=== PATIENT | male | born 1985 | race African-American/Black ===

== ENCOUNTER 2021-03-07 12:53 | Emergency (ER) | payer SELFPAY ==
[2021-03-07 13:58] LABS: Bilirubin Neg (Negative); Blood, Urine 150 (Negative); Clarity Clear (Clear); Glucose, Urine (Dipstick) Normal (Negative); Ketone, Urine 5 mg/dL (Negative); Leukocyte Negative (Negative); Nitrite Negative (Negative); Protein, Urine (Dipstick) 30 mg/dl (Neg-Trace); Specific Gravity, Urine 1.025 (1.002-1.036)
[2021-03-07 14:10] LABS: Bacteria/HPF None Seen HPF (None Seen); Mucous/LPF 1+ LPF (<2+); Squamous Epithelial 0-3 HPF (0-3); WBC/HPF 0-3 HPF (0-3)
[2021-03-07 14:11] LABS: Hemoglobin 17.2 g/dL (13.5-17.5); Mean Corpuscular HGB CONC 34.3 g/dL (32.0-36.0); Mean Corpuscular Hemoglobin 34.1 pg (27.0-33.0); Mean Corpuscular Volume 99.6 fl (81.2-95.1); RBC Distribution Width 11.9 % (11.5-14.5); Red Blood Cell (RBC) Count 5.04 10x6/uL (4.32-5.72); White Blood Cell (WBC) Count 4.1 10x3/uL (3.5-10.5)
[2021-03-07 14:16] LABS: Mean Platelet Volume 10.1 fl (7.4-10.4); Platelet Count 140 10x3/uL (150-450)
[2021-03-07 14:28] LABS: ALT (SGPT) 11 U/L (8-55); AST (SGOT) 27 U/L (5-34); Albumin 4.5 g/dL (3.5-5.0); Alkaline Phosphatase 79 U/L (40-110); Anion Gap 13 mmol/L (10-20); BUN (Urea Nitrogen) 11 mg/dL (8.9-20.6); Bilirubin, Total 1.6 mg/dL (0.2-1.2); CK (CPK) 111 U/L (30-200); Calc. Creatinine Clearance 0 mL/min (70-130); Calcium 9.2 mg/dL (7.8-10.44); Carbon Dioxide 25 mmol/L (22-29); Chloride 103 mmol/L (98-107); Globulin 3.1 g/dL (2.4-3.5); Glucose 90 mg/dL (70-105); Potassium 4.7 mmol/L (3.5-5.1); Protein, Total 7.6 g/dL (6.0-8.3); Sodium 136 mmol/L (136-145)
[2021-03-07 14:29] LABS: CKMB 0.4 ng/mL (0-6.6)
[2021-03-07 14:47] LABS: Reactive Lymphocytes 1 % (0-10)
[2021-03-07 14:50] LABS: MDiff Complete? YES
[2021-03-07 14:51] LABS: Eosinophils 0 % (0-10); Lymphocytes 33 % (21-51); Monocytes 16 % (0-10); Neutrophil 50 % (42-75)
[2021-03-07 14:53] LABS: Platelet Morphology Comment Appears Adequate
[2021-03-07] MEDS ORDERED: Ketorolac Tromethamine 30 MG/ML VIAL ONE (18:38)
== END 2021-03-07 18:41 | disposition home or self-care (01) ==
LOC: CSHERS 12:53
DX: R31.9 Hematuria, unspecified (principal); F17.200 Nicotine dependence, unspecified, uncomplicated
CPT/HCPCS: 36415; 74178; 80053; 81003; 81015; 82550; 82553; 85025; 96374; J1885